=== PATIENT | female | born 1995 | race Caucasian/White ===

== ENCOUNTER 2020-02-26 10:35 | Emergency (ER) | payer OTHER ==
[~2020-02-26] VITALS: Ht 162.6 cm; Wt 158.8 kg
[2020-02-26 10:50] VITALS: BP 145/72
[2020-02-26 11:15] LABS: BASOPHILS % (AUTO) 0.4 % (0.0-2.0); EOSINOPHILS % (AUTO) 0.1 % (0.0-4.0); HEMATOCRIT 41.2 % (36-48); HEMOGLOBIN 13.4 g/dL (12.0-16.0); LYMPHOCYTES # (AUTO) 2.3 K/uL (2.5-16.5); LYMPHOCYTES % (AUTO) 29.2 % (20.5-51.1); MEAN CORPUSCULAR HEMOGLOBIN 29 pg (27-31); MEAN CORPUSCULAR HGB CONC 33 g/dL (33-37); MEAN CORPUSCULAR VOLUME 88.5 fL (80-94); MONOCYTES # (AUTO) 0.7 K/uL (0.8-1.0); MONOCYTES % (AUTO) 9.5 % (1.7-9.3); NEUTROPHILS # (AUTO) 4.8 K/uL (1.8-7.7); NEUTROPHILS % (AUTO) 60.8 % (42.2-75.2); PLATELET COUNT (AUTO) 279 K/uL (140-450); RED BLOOD CELL COUNT(AUTO) 4.66 MIL/uL (4.20-5.40); RED CELL DISTRIBUTION WIDTH 13.1 % (11.6-13.7); WHITE BLOOD COUNT (AUTO) 7.9 K/uL (4.8-10.8)
--- NOTE | 2020-02-26 11:37 | NUR ---
COVID SWAB COLLECTED.
[2020-02-26 11:39] LABS: ALBUMIN 3.5 g/dL (3.4-5.0); ANION GAP 11.6 (8-16); CARBON DIOXIDE 27.1 mmol/L (21-32); CREATININE 0.9 mg/dL (0.6-1.3); POTASSIUM 3.7 mmol/L (3.5-5.1); TOTAL BILIRUBIN 0.4 mg/dL (0.0-1.0)
[2020-02-26 13:11] VITALS: BP 145/72
--- NOTE | 2020-02-26 13:11 | NUR ---
Patient discharged with v/s stable. Written and verbal after care instructions given and explained. Patient alert, oriented and verbalized understanding of instructions. Ambulatory with steady gait. All questions addressed prior to discharge. ID band removed. Patient advised to follow up with PMD. Rx of AZITHROMYCIN given. Patient educated on indication of medication including possible reaction and side effects. Opportunity to ask questions provided and answered.
--- NOTE | 2020-02-28 14:07 | NUR ---
+ covid result received from lab. Copy given to infection control
== END 2020-02-26 13:11 | disposition home or self-care (01) ==
LOC: MED 10:35
DX: R05 Cough (principal); Z20.828 Contact with and (suspected) exposure to other viral communicable diseases
CPT/HCPCS: 71045; 80053; 85025; 99284; U0003

== ENCOUNTER 2020-03-01 16:18 | Inpatient (IN) | payer OTHER, SELFPAY ==
[~2020-03-01] VITALS: Ht 162.6 cm; Wt 124.7 kg
[2020-03-01] MEDS ORDERED: NACL 0.9% 1,000 ML IV ONE ×2 (18:10→22:30)
[2020-03-01 18:27] VITALS: BP 131/91
[2020-03-01 19:03] LABS: BASOPHILS % (AUTO) 0.2 % (0.0-2.0); HEMATOCRIT 40.8 % (36-48); HEMOGLOBIN 13.5 g/dL (12.0-16.0); LYMPHOCYTES # (AUTO) 1.2 K/uL (2.5-16.5); MEAN CORPUSCULAR HEMOGLOBIN 29 pg (27-31); MEAN CORPUSCULAR HGB CONC 33 g/dL (33-37); MEAN CORPUSCULAR VOLUME 86.8 fL (80-94); MONOCYTES # (AUTO) 0.6 K/uL (0.8-1.0); MONOCYTES % (AUTO) 6.5 % (1.7-9.3); NEUTROPHILS % (AUTO) 81.3 % (42.2-75.2); PLATELET COUNT (AUTO) 292 K/uL (140-450); RED CELL DISTRIBUTION WIDTH 13.1 % (11.6-13.7); WHITE BLOOD COUNT (AUTO) 9.9 K/uL (4.8-10.8)
[2020-03-01 19:20] LABS: ALBUMIN 3.3 g/dL (3.4-5.0); ANION GAP 12.6 (8-16); CARBON DIOXIDE 28.6 mmol/L (21-32); CREATININE 0.9 mg/dL (0.6-1.3); POTASSIUM 3.2 mmol/L (3.5-5.1); TOTAL BILIRUBIN 0.7 mg/dL (0.0-1.0)
[2020-03-01] MEDS ORDERED: AZITHROMYCIN 500 MG in DEXTROSE 5% 250 ML IV ONE (19:20)
[2020-03-01 19:43] LABS: CKMB RELATIVE INDEX 0.1 (0.0-2.5); CREATINE KINASE MB 0.6 ng/mL (0-3.6)
--- NOTE | 2020-03-01 22:25 | NUR ---
APPROX 21:40 - ATTEMPTED 2X UNSUCCESSFUL ABG PUNCTURES APPROX 10:27 - ANOTHER EMPLOYMENT RECRUITER ATTEMPTED 2X UNSUCCESSFUL PUNCTURES WILL ATTEMPT AGAIN AT A LATER TIME
--- NOTE | 2020-03-01 23:18 | NUR ---
PT TAKEN TO BED 9 FROM TENT
[2020-03-01] MEDS ORDERED: POTASSIUM CHLORIDE 10 MEQ TABER PO PRN (23:20)
[2020-03-01] MEDS ORDERED: MAG SULF 2000 MG/WATER PREMIX 50 ML IV PRN (23:20)
[2020-03-01] MEDS ORDERED: ACETAMINOPHEN 325 MG TAB PO PRN (23:20)
[2020-03-01] MEDS ORDERED: HYDROcodone/APAP 5/325 MG 1 TAB TAB PO PRN (23:20)
[2020-03-01] MEDS: AZITHROMYCIN 500 MG in DEXTROSE 5% 250 ML IV SCH (23:20)
[2020-03-01] MEDS ORDERED: KCL 20 MEQ/WATER INJ PREMIX 200 ML IV PRN (23:20)
[2020-03-01] MEDS ORDERED: ONDANSETRON 4 MG/2 ML VIAL IVP PRN (23:20)
--- NOTE | 2020-03-01 23:30 | NUR ---
25 YR OLD FEMALE AOX4 WITH CHIEF COMPLAINT OF SHORTNESS OF BREATH. PATIENT STATES BEING COVID POSITIVE WHEN TESTED LAST MONDAY AND PRESENTED TODAY FOR SHORTNESS OF BREATH. PATIENT HAS WHEEZES IN UPPER LUNGS UPON EXPIRATION WITH EQUAL RISE AND FALL. HEART SOUNDS WNL. PATIENT STATES CHEST PAIN 4/10 NON-RADIATING IN MIDDLE OF CHEST WHEN COUGHING BUT 0/10 PAIN WHEN NOT COUGHING. SKIN IS INTACT. 22 GAUGE IV ESTABLISHED IN LEFT HAND. 20 GAUGE IV ESTABLISHED IN RIGHT AC BY AM SHIFT RN. PATIENT IN SEMI-FOWLERS POSITION IN BED. BED LOCKED IN LOWEST POSITION WITH 2 SIDE RAILS UP. HISTORY- NONE ALLERGIES- NONE
[2020-03-01] MEDS ORDERED: AZITHROMYCIN 500 MG INJ VIAL IV ONE (23:32)
[2020-03-01] MEDS ORDERED: cefTRIAXone 1,000 MG VIAL ONE (23:32)
[2020-03-01 23:37] LABS: RSV NEGATIVE (NEGATIVE)
--- NOTE | 2020-03-02 00:13 | NUR ---
Per Dr. Oskar valdovinos to insert urinary chávez catheter at this time.
--- NOTE | 2020-03-02 01:15 | NUR ---
# 16 FR Montejo catheter with 10 ml utilizing sterile technique. Immediate return of 400 ml rom urine noted. Bedside drainage bag placed below level of bladder. Urine sample collected and sent to lab. Pt tolerated procedure well.
--- NOTE | 2020-03-02 01:17 | NUR ---
Urine sample collected and walked to lab.
[2020-03-02 01:55] LABS: APPEARANCE,URINE CLEAR (CLEAR); BILIRUBIN,URINE NEGATIVE (NEGATIVE); BLOOD, URINE NEGATIVE (NEGATIVE); COLOR,URINE YELLOW (YELLOW); LEUKOCYTE ESTERASE ,URINE NEGATIVE (NEGATIVE); NITRITE, URINE NEGATIVE (NEGATIVE); UGLUCOSE NEGATIVE (NEGATIVE)
--- NOTE | 2020-03-02 02:09 | NUR ---
PATIENT FOUND ASLEEP IN BED IN SEMI-FOWLERS POSITION. PATIENT LUNG SOUNDS CLEAR BILATERALLY WITH EQUAL DEPTH AND RISE, HEART SOUNDS WNL. VITAL SIGNS WNL. BED LOCKED IN LOWEST POSITION WITH 2 SIDE RAILS UP. CALL LIGHT WITHIN REACH. WILL CONTINUE TO MONITOR. Addendum: 03/02/20 at 0214 by MEDOE PATIENT FOUND ASLEEP IN BED IN SEMI-FOWLERS POSITION. PATIENT HAS WHEEZES IN UPPER LUNGS BILATERALLY WITH EQUAL DEPTH AND RISE, HEART SOUNDS WNL. VITAL SIGNS WNL. BED LOCKED IN LOWEST POSITION WITH 2 SIDE RAILS UP. CALL LIGHT WITHIN REACH. WILL CONTINUE TO MONITOR.
--- NOTE | 2020-03-02 03:59 | NUR ---
PATIENT FOUND ASLEEP IN BED IN SEMI-FOWLERS POSITION. PATIENT HAS WHEEZES IN UPPER LUNGS BILATERALLY WITH EQUAL DEPTH AND RISE, HEART SOUNDS WNL. VITAL SIGNS WNL. BED LOCKED IN LOWEST POSITION WITH 2 SIDE RAILS UP. CALL LIGHT WITHIN REACH. WILL CONTINUE TO MONITOR.
--- NOTE | 2020-03-02 05:58 | NUR ---
Flushed 22g IV in left hand w/ 10cc of NS. IV patent, no pain, redness or swelling noted at IV site.
--- NOTE | 2020-03-02 06:16 | NUR ---
PATIENT FOUND AWAKE IN BED IN SEMI-FOWLERS POSITION. PATIENT HAS WHEEZES IN UPPER LUNGS BILATERALLY WITH EQUAL DEPTH AND RISE, HEART SOUNDS WNL. PATIENT STATED NO DISTRESS AND NO DISCOMFORT. VITAL SIGNS WNL. BED LOCKED IN LOWEST POSITION WITH 2 SIDE RAILS UP. CALL LIGHT WITHIN REACH. WILL CONTINUE TO MONITOR.
--- NOTE | 2020-03-02 06:20 | NUR ---
PATIENT WAS PROVIDED WATER PER PATIENT REQUEST. PATIENT PILLOW ADJUSTED FOR POSITION OF COMFORT PER PATIENT REQUEST.
--- NOTE | 2020-03-02 07:02 | NUR ---
PATIENTS STATES 6/10 CHEST PAIN NON-RADIATING. PATIENT WAS ADMINISTERED NORCO FOR CHEST PAIN.
--- NOTE | 2020-03-02 07:25 | NUR ---
REPORT GIVEN TO ARLET MANNING FOR TRANSFER OF CARE.
[2020-03-02] MEDS: DEXAMETHASONE 4 MG/ML VIAL IVP SCH (08:26)
[2020-03-02] MEDS: DOCUSATE SODIUM 100 MG GELCAP PO SCH (08:26)
[2020-03-02] MEDS: ENOXAPARIN 40 MG/0.4 ML SYR SUBQ SCH (08:27)
[2020-03-02 08:30] LABS: BASOPHILS % (AUTO) 0.1 % (0.0-2.0); HEMATOCRIT 36.2 % (36-48); HEMOGLOBIN 11.9 g/dL (12.0-16.0); LYMPHOCYTES # (AUTO) 1.3 K/uL (2.5-16.5); LYMPHOCYTES % (AUTO) 13.8 % (20.5-51.1); MEAN CORPUSCULAR HEMOGLOBIN 29 pg (27-31); MEAN CORPUSCULAR HGB CONC 33 g/dL (33-37); MONOCYTES # (AUTO) 0.8 K/uL (0.8-1.0); MONOCYTES % (AUTO) 8.5 % (1.7-9.3); NEUTROPHILS # (AUTO) 7.4 K/uL (1.8-7.7); NEUTROPHILS % (AUTO) 77.6 % (42.2-75.2); PLATELET COUNT (AUTO) 260 K/uL (140-450); RED BLOOD CELL COUNT(AUTO) 4.16 MIL/uL (4.20-5.40); RED CELL DISTRIBUTION WIDTH 12.8 % (11.6-13.7); WHITE BLOOD COUNT (AUTO) 9.5 K/uL (4.8-10.8)
[2020-03-02 08:52] LABS: ALBUMIN 2.7 g/dL (3.4-5.0); ANION GAP 11.3 (8-16); CARBON DIOXIDE 26.7 mmol/L (21-32); CREATININE 0.7 mg/dL (0.6-1.3); MAGNESIUM 2.7 mg/dL (1.8-2.4); TOTAL BILIRUBIN 0.6 mg/dL (0.0-1.0)
--- NOTE | 2020-03-02 08:52 | NUR ---
PATIENT HAS BEEN SCREENED AND CATEGORIZED MODERATE NUTRITION RISK. PATIENT WILL BE SEEN WITHIN 3-5 DAYS OF ADMISSION. 03/04/20 03/06/[address]
[2020-03-02 08:53] LABS: PROTHROMBIN TIME 11.2 secs (10.8-13.4)
--- NOTE | 2020-03-02 09:51 | NUR ---
PT EATING BREAKFAST.
--- NOTE | 2020-03-02 10:00 | NUR ---
PT ALERT AND AWAKE, BREATHING EVEN AND UNLABORED. PT REMAINS ON 3L NC. NO DISTRESS NOTED.
--- NOTE | 2020-03-02 10:22 | NUR ---
SOCIAL WORK NOTE: Patient's Orientation Unable To Assess Information Provided By JANIE LIU - FATHER Comments SW WAS UNABLE TO MEET PATIENT AT BEDSIDE. SW COMPLETED ASSESSMENT WITH PATIENT'S FATHER. Refrigeration Mechanic Helper, Realtionship and Phone Number JANIE MONTIEL [phone] Healthcare Power of Manager Chemistry No Does Patient Have a POLST No Identifying Problems No Social Work Triggers Is A Social Work Consult Needed No Mandate Report Filed No Explanation Of Identifying Problems PATIENT IS A 25-YEAR-OLD FEMALE ADMITTED FOR ACUTE HYPOXIC RESPIRATORY FAILURE. PATIENT HAS NO REPORTED PMHX. FATHER REPORTED NO HX OF SUBSTANCE ABUSE OR MENTAL HEALTH. Admitted From Home Pre-Admission Level Of Functioning Status Independent/Ambulatory Prior Resources/Services Used In Last 12 Months No Prior Resources Used Prior DME No Prior DME Used Dialysis Comments N/A Living Situation Lives With Family House Patient Had Caregiver No Home Support No Caregiver Issues Financial Issues No Known Financial Issue Referral To The Financial Counselor Needed No Factors/Needs No D/C Needs Identified Pt/Rep Participated In Discharge Plan Yes Patient/Family Agress With Discharge Plan Yes Discharge Plan Comments TENTATIVE DISCHARGE PLAN IS FOR PATIENT TO RETURN HOME. DC Plan Status Initiated
[2020-03-02] MEDS ORDERED: remdesivir COMMUNICATION ORDER 1 EA MISC MC PRN (11:20)
[2020-03-02] MEDS ORDERED: remdesivir CLINICAL MONITORING 1 EA MISC MC PRN (11:55)
--- NOTE | 2020-03-02 12:00 | NUR ---
PT ALERT AND AWAKE, BREATHING EVEN AND UNLABORED. PT REMAINS ON 3L NC. NO DISTRESS NOTED.
[2020-03-02] MEDS ORDERED: REMDESIVIR (EUA) 200 MG in NACL 0.9% 100 ML IV SCH (14:00)
--- NOTE | 2020-03-02 14:00 | NUR ---
PT ALERT AND AWAKE, BREATHING EVEN AND UNLABORED. PT REMAINS ON 3L NC. NO DISTRESS NOTED.
--- NOTE | 2020-03-02 14:28 | NUR ---
PT ATE LUNCH TRAY 100%
--- NOTE | 2020-03-02 16:00 | NUR ---
PT ALERT AND AWAKE, BREATHING EVEN AND UNLABORED. PT REMAINS ON 3L NC. NO DISTRESS NOTED.
--- NOTE | 2020-03-02 18:00 | NUR ---
PT ALERT AND AWAKE, BREATHING EVEN AND UNLABORED. PT REMAINS ON 3L NC. NO DISTRESS NOTED.
--- NOTE | 2020-03-02 19:16 | NUR ---
REPORT GIVEN TO JAREK MANNING, TRANSFER OF CARE AT THIS TIME.
--- NOTE | 2020-03-02 19:18 | NUR ---
RECEIVED REPORT FROM KERRI VICK FOR CONTINUATION OF CARE.
[2020-03-02] MEDS ORDERED: cefTRIAXone 1,000 MG VIAL ONE (20:01)
[2020-03-02] MEDS ORDERED: AZITHROMYCIN 500 MG INJ VIAL IV ONE (20:01)
--- NOTE | 2020-03-02 21:20 | NUR ---
PT REQUESTED THAT HER PHONE BE PUT TO CHARGE. PT IS CONNECTED TO THE AUTHORIZATION REP. BED IS LOCKED AND IN LOWEST POSITION. SIDE RAILSX1. PT IS NOT IN ANY ACUTE DISTRESS AT THIS TIME. CALL LIGHT WITHIN REACH. WILL CONTINUE TO MONITOR.
[2020-03-02] MEDS: AZITHROMYCIN 500 MG in DEXTROSE 5% 250 ML IV SCH (21:21)
--- NOTE | 2020-03-02 23:30 | NUR ---
PT IS RESTING, VISIBLE RISE AND FALL OF CHEST NOTED. PT IS ON 3 L NC AND SAO2@93%. PT IS CONNECTED TO THE MANAGER PHOTO. BED IS LOCKED AND IN LOWEST POSITION. SIDE RAILSX1. PT IS NOT IN ANY ACUTE DISTRESS AT THIS TIME. CALL LIGHT WITHIN REACH. WILL CONTINUE TO MONITOR.
--- NOTE | 2020-03-02 23:30 | NUR ---
EMPTIED 1700 MLS OF LISA COLORED URINE FROM TOSCANO BAG.
--- NOTE | 2020-03-03 01:30 | NUR ---
PT IS RESTING, VISIBLE RISE AND FALL OF CHEST NOTED. PT IS ON 3 L NC AND SAO2@92%. PT IS CONNECTED TO THE KEY SANDER. BED IS LOCKED AND IN LOWEST POSITION. SIDE RAILSX1. PT IS NOT IN ANY ACUTE DISTRESS AT THIS TIME. CALL LIGHT WITHIN REACH. WILL CONTINUE TO MONITOR.
--- NOTE | 2020-03-03 03:30 | NUR ---
PT IS SLEEPING, VISIBLE RISE AND FALL OF CHEST NOTED. PT IS ON 3 L NC AND SAO2@92%. PT IS CONNECTED TO THE MACHINE ZIPPER TRIMMER. BED IS LOCKED AND IN LOWEST POSITION. SIDE RAILSX1. PT IS NOT IN ANY ACUTE DISTRESS AT THIS TIME. CALL LIGHT WITHIN REACH. WILL CONTINUE TO MONITOR.
--- NOTE | 2020-03-03 05:30 | NUR ---
PT IS SLEEPING, VISIBLE RISE AND FALL OF CHEST NOTED. PT IS ON 3 L NC AND SAO2@92%. PT IS CONNECTED TO THE SEXTON HELPER. BED IS LOCKED AND IN LOWEST POSITION. SIDE RAILSX1. PT IS NOT IN ANY ACUTE DISTRESS AT THIS TIME. CALL LIGHT WITHIN REACH. WILL CONTINUE TO MONITOR.
--- NOTE | 2020-03-03 07:30 | NUR ---
PT IS SLEEPING, VISIBLE RISE AND FALL OF CHEST NOTED. PT IS ON 3 L NC AND SAO2@92%. PT IS CONNECTED TO THE THERAPEUTIC SUPPORT STAFF. BED IS LOCKED AND IN LOWEST POSITION. SIDE RAILSX1. PT IS NOT IN ANY ACUTE DISTRESS AT THIS TIME. CALL LIGHT WITHIN REACH. WILL CONTINUE TO MONITOR.
--- NOTE | 2020-03-03 07:30 | NUR ---
REPORT GIVEN TO KERRI KAYE FOR TRANSFER OF CARE AT THIS TIME.
--- NOTE | 2020-03-03 08:00 | NUR ---
Patient appears to be resting comfortably in bed. Vital Signs within normal limits. Respirations even and unlabored.
[2020-03-03] MEDS: DOCUSATE SODIUM 100 MG GELCAP PO SCH (08:21)
[2020-03-03] MEDS: DEXAMETHASONE 4 MG/ML VIAL IVP SCH (08:21)
[2020-03-03] MEDS: ENOXAPARIN 40 MG/0.4 ML SYR SUBQ SCH (08:22)
[2020-03-03 08:50] LABS: BASOPHILS % (AUTO) 0.1 % (0.0-2.0); HEMATOCRIT 37.7 % (36-48); HEMOGLOBIN 12.5 g/dL (12.0-16.0); LYMPHOCYTES # (AUTO) 1.5 K/uL (2.5-16.5); LYMPHOCYTES % (AUTO) 14.8 % (20.5-51.1); MEAN CORPUSCULAR HEMOGLOBIN 29 pg (27-31); MEAN CORPUSCULAR HGB CONC 33 g/dL (33-37); MEAN CORPUSCULAR VOLUME 87.6 fL (80-94); MONOCYTES # (AUTO) 1.1 K/uL (0.8-1.0); MONOCYTES % (AUTO) 10.7 % (1.7-9.3); NEUTROPHILS # (AUTO) 7.3 K/uL (1.8-7.7); NEUTROPHILS % (AUTO) 74.4 % (42.2-75.2); PLATELET COUNT (AUTO) 311 K/uL (140-450); RED CELL DISTRIBUTION WIDTH 12.9 % (11.6-13.7); WHITE BLOOD COUNT (AUTO) 9.8 K/uL (4.8-10.8)
[2020-03-03 10:34] LABS: ALBUMIN 2.9 g/dL (3.4-5.0); ANION GAP 14.1 (8-16); CARBON DIOXIDE 26.1 mmol/L (21-32); CREATININE 0.8 mg/dL (0.6-1.3); MAGNESIUM 2.2 mg/dL (1.8-2.4); POTASSIUM 3.2 mmol/L (3.5-5.1); TOTAL BILIRUBIN 0.5 mg/dL (0.0-1.0)
[2020-03-03 11:13] VITALS: BP 124/69
--- NOTE | 2020-03-03 12:00 | NUR ---
Patient appears to be resting comfortably in bed. Vital Signs within normal limits. Respirations even and unlabored.
[2020-03-03] MEDS ORDERED: REMDESIVIR (EUA) 100 MG in NACL 0.9% 100 ML IV SCH (14:00)
--- NOTE | 2020-03-03 14:24 | NUR ---
Patient does not wish to proceed with medical care recommended by MD MOTTA. Patient given information related to possible complications, up to and including , which could occur as a result of leaving hospital at this time. Patient verbalizes understanding of risks involved leaving against medical advice. Patient has signed AMA form.
--- NOTE | 2020-03-03 14:25 | NUR ---
BILATERAL IVS REMOVED AT THIS TIME, TOSCANO CATHETER REMOVED AT THIS TIME. PATIENT STATES BOYFRIEND WILL PICK HER UP AND TAKE HER HOME
--- NOTE | 2020-03-03 16:43 | NUR ---
DISCHARGE PLANNING: PER DR. HENDRICKS, NOT READY FOR DC YET. HE JUST STARTED THE PATIENT ON REMDESIVIR. OK TO ORDER HOME O2.
--- NOTE | 2020-03-04 15:47 | NUR ---
Covid results received from lab. Results = Positive. Hard copy requested from lab and placed in infection controls mailbox.
--- NOTE | 2020-03-05 11:45 | NUR ---
Covid results received from lab. Results = Positive. Hard copy requested from lab and placed in infection controls mailbox.
== END 2020-03-03 14:25 | disposition left against medical advice (07) | DRG 137 ==
LOC: MED 16:18 → MMU 23:19
PROVIDERS: ADMIT Internal Medicine; ATTEND Internal Medicine
PROC: XW033E5 Introduction of Remdesivir Anti-infective into Peripheral Vein, Percutaneous Approach, New Technology Group 5 (ICD-10-PCS; principal; 2020-03-02)
DX: U07.1 COVID-19 (principal); J12.82 Pneumonia due to coronavirus disease 2019; E87.6 Hypokalemia; Z82.49 Family history of ischemic heart disease and other diseases of the circulatory system; E66.9 Obesity, unspecified; Z68.42 Body mass index [BMI] 45.0-49.9, adult; R09.02 Hypoxemia
CPT/HCPCS: 36415; 51702; 71045; 80053; 81003; 81025; 82550; 82553; 82728; 83605; 83615; 83735; 83880; 84484; 85025; 85379; 85384; 85610; 85730; 86140; 87040; 87086; 87420; 87804; 93005; 96365; 96367; 99291; J0456; J0696; J1100; J1650; J7060; U0003